=== PATIENT | male | born 1990 | race Caucasian/White ===

== ENCOUNTER 2020-09-11 01:44 | Outpatient (CLI) | payer OTHER | END 2020-09-11 01:45 | disposition critical access hospital (66) | LOC: EMS 01:44 | PROVIDERS: ATTEND Surgery | DX: R10.9 Unspecified abdominal pain (principal) | CPT/HCPCS: A0425; A0429 ==

== ENCOUNTER 2020-09-11 01:50 | Emergency (ER) | payer OTHER ==
[2020-09-11] MEDS ORDERED: HYDROmorphone 1 MG/ML CARPUJECT IVP STA ×2 (01:54→02:17)
[2020-09-11] MEDS ORDERED: ONDANSETRON 4 MG/2 ML VIAL IVP STA (01:55)
[2020-09-11] MEDS ORDERED: SODIUM CHLORIDE 0.9% 1,000 ML IV STA (01:55)
--- NOTE | 2020-09-11 02:00 | ED Physician Documentation ---
History of Present Illness - Stated complaint Stated Complaint: LEFT FLANK PAIN - Chief complaint Chief Complaint: Abd Pain - History obtained from History obtained from: Patient, EMS - Additonal information Additional information: Comes emergency department via EMS for chief complaint of left flank pain that is severe and woke him out of sleep at around 1:00. Patient states he has no history of anything like this previously. He denies nausea or vomiting. No fevers. No cough or shortness of breath. He was feeling fine before onset of the symptoms, and had a normal day yesterday. No other complaints at this time. Review of Systems Ten Systems: 10 systems reviewed and negative Constitutional: reports: Reviewed and negative Eyes: reports: Reviewed and negative Ears: reports: Reviewed and negative Nose: reports: Reviewed and negative Throat: reports: Reviewed and negative Cardiac: reports: Reviewed and negative Respiratory: reports: Reviewed and negative GI: reports: Abdominal Pain (L flank and LLQ), Reviewed and negative : reports: Reviewed and negative Skin: reports: Reviewed and negative Musculoskeletal: reports: Reviewed and negative Neurologic: reports: Reviewed and negative Psychiatric: reports: Reviewed and negative Endocrine: reports: Reviewed and negative Immunocompromised: reports: Reviewed and negative PD PAST MEDICAL HISTORY - Present Medications Home Medications: Ambulatory Orders Medication Instructions Recorded Confirmed Tamsulosin HCl [Flomax] 0.4 mg PO DAILY PRN #5 capsule 09/11/20 - Allergies Allergies/Adverse Reactions: Allergies Allergy/AdvReac Type Severity Reaction Status Date / Time amoxicillin Allergy Unknown Verified 09/11/20 02:13 PD ED PE NORMAL - Vitals Vital signs reviewed: Yes - General General: Other (Patient is alert and in obvious pain, writhing and crying out.) - HEENT HEENT: Atraumatic, PERRL, EOMI, Moist mucous membranes - Neck Neck: Supple, no meningeal sign - Cardiac Cardiac: RRR, No murmur, Strong equal pulses - Respiratory Respiratory: No respiratory distress, Clear bilaterally - Abdomen Abdomen: Soft, Non distended, Other (Moderate left lower quadrant tenderness, no rebound or guarding.) - Back Back: Other (Left CVA tenderness.) - Derm Derm: Normal color, Warm and dry, No rash - Extremities Extremities: No deformity, No edema, No calf tenderness / cord - Neuro Neuro: Other (Patient is alert and answers questions appropriately. Neurologic exam grossly intact.) - Psych Psych: Normal mood, Normal affect Results - Vitals Vitals: Vital Signs - 24 hr 09/11/20 01:50 Temperature 36.0 C L Heart Rate 76 Respiratory 20 Rate Blood Pressure 111/85 H O2 Saturation 100 Oxygen O2 Source Room air - Rads (name of study) CT abd/pelvis Radiology: Final report received, EMP read indepedently, See rad report (L UVJ stone) PD MEDICAL DECISION MAKING - ED course Complexity details: reviewed old records, reviewed results, re-evaluated patient, considered differential, d/w patient ED course: The patient was in obvious discomfort upon arrival and I suspected urinary calculus. The patient had an IV in place from EMS and a ordered Dilaudid, Toradol, and Zofran through the IV. Patient was also given a liter point and normal saline. CT scan of the abdomen and pelvis without contrast was orderedAnd did show a 2 to 3 mm stone at the left UVJ. The patient was found to be feeling much better after symptomatic treatment. The results of his work-up were discussed with him. We have discussed home management of the symptoms, as well as the usual indications for return.. Departure - Departure Clinical Impression: Kidney stone on left side Condition: Stable Instructions: ED Stone Renal W Colic Prescriptions: Tamsulosin HCl [Flomax] 0.4 mg PO DAILY PRN #5 capsule PRN Reason: Pain Comments: Your CT scan shows a 2 to 3 mm kidney stone that is at the very bottom of your left ureter, the tube that drains urine from your kidney into the bladder. The stone should pop into your bladder soon and then can be easily urinated out. Once the stone goes into the bladder, the pain generally stops. You have been given a prepack of pain medication just in case you have another flareup of pain in the next day. Please drink plenty of fluids to help encourage the stone to pass.
[2020-09-11] MEDS ORDERED: KETOROLAC 30 MG/ML VIAL IVP STA (02:17)
[2020-09-11] MEDS ORDERED: KETOROLAC 30 MG/ML VIAL ONE (02:28)
[2020-09-11] MEDS ORDERED: HYDROcod/ACET 5/325 Prepack 4 PO STA (03:02)
[2020-09-11 03:08] VITALS: BP 141/74
--- NOTE | 2020-09-11 09:22 | CT Report ---
PROCEDURE: Abdomen/Pelvis WO INDICATIONS: L flank pain, sudden onset TECHNIQUE: Noncontrast 5 mm thick sections acquired from the diaphragms to the symphysis. 5 mm coronal and sagi ttal reformats were then performed. For radiation dose reduction, the following was used: automated exposure control, adjustment of mA and/or kV according to patient size. COMPARISON: None. FINDINGS: Image quality: Excellent. ABDOMEN: Lung bases: Lung bases are clear. Heart size is normal. Solid organs: Liver and spleen are normal in size. Gallbladder negative Pancreas is normal in cont ours. No adrenal nodules. No nephrolithiasis however 2-3 mm calculus seen at the left ureterovesical junction. There is minimal left ureteral ectasia and no definite left hydronephrosis. No definite pe rinephric stranding Peritoneum and bowel: Unenhanced bowel loops demonstrate normal wall thickness and caliber. No tara e fluid or air. Nodes and vessels: No retroperitoneal or mesenteric adenopathy by size criteria. Aorta and inferior vena cava are normal in caliber. Miscellaneous: No ventral hernias. PELVIS: Genitourinary: Bladder wall thickness is normal. Miscellaneous: No inguinal hernias or adenopathy. Bones: No suspicious bony lesions. No vertebral body compression fractures. IMPRESSION: Minimally obstructive 2-3 mm calculus seen at the left ureterovesical junction. Elsewhere, no additional urolithiasis Findings are concordant with the preliminary study interpretation provided at the time of the study. Reviewed by: Rigo Mejia MD on 09/11/2020 9:21 AM PST Approved by: Rigo Mejia MD on 09/11/2020 9:21 AM PST Station ID: [id number]
== END 2020-09-11 03:25 | disposition home or self-care (01) ==
LOC: ED 01:50
DX: N20.1 Calculus of ureter (principal)
CPT/HCPCS: 74176; 96361; 96374; 96375; 99284; J1170